=== PATIENT | female | born 1965 | race Caucasian/White ===

== ENCOUNTER 2017-02-07 19:40 | Emergency (ER) | payer OTHER ==
--- NOTE | ~2017-02-07 | CR181 ---
[facility]. [facility] A Service of [facility] & [facility] RADIOLOGY TEXT RESULTS PATIENT: MERCEDEZ LUTHER LOCATION: SED : 69 UNIT #: [id number] AGE: [address]: Maggie Armas MD SEX: F ORDER DR: [id number] [address] [address] [id number] E MR#: [id number] Acc #: [id number] NAME: MERCEDEZ LUTHER : 1965 SEX: F STUDY DATE/TIME: 02/07/2017 20:18 UNIT: SED ROOM: STUDY DESCRIPTION: CR Lumbar Spine 2 or 3 Views Attending Physician: Maggie Armas M.D. Ordering Physician: Maggie Armas M.D. Primary Care Physician: No Primary Care Physician MEDICAL IMAGING REPORT This report is preliminary unless electronic signature is present. EXAM Lumbar spine. INDICATION Low back pain status post fall. Trauma. FINDINGS Three views of the lumbar spine without comparison. There is no acute fracture. No subluxation. There is some mild degenerative changes of the lumbar spine, predominately consisting of facet arthropathy from L3-4 through L5-S1. IMPRESSION No acute findings. Dictated by... Kwame Ewing M.D. THIS IS AN ELECTRONICALLY VERIFIED REPORT Kwame Ewing M.D. at 02/08/2017 3:07 PM TERI/timoteo TD: 02/08/2017 12:03 JOB #: [id number] MEDICAL IMAGING REPORT Page 1 of 1
--- NOTE | ~2017-02-07 | CR151 ---
[facility]. [facility] A Service of [facility] & [facility] RADIOLOGY TEXT RESULTS PATIENT: MERCEDEZ LUTHER LOCATION: SED : 69 UNIT #: [id number] AGE: [address]: Maggie Armas MD SEX: F ORDER DR: [id number] [address] [address] [id number] E MR#: [id number] Acc #: [id number] NAME: MERCEDEZ LUTHER : 1965 SEX: F STUDY DATE/TIME: 02/07/2017 20:18 UNIT: SED ROOM: STUDY DESCRIPTION: CR Hip Min 2 Views Rt Attending Physician: Maggie Armas M.D. Ordering Physician: Maggie Armas M.D. Primary Care Physician: Primary Care Physician No MEDICAL IMAGING REPORT This report is preliminary unless electronic signature is present. EXAM Right hip INDICATION Trauma. Fall. Right hip pain. FINDINGS Two views of the right hip without comparison. There is no acute fracture or dislocation. Joint spaces are well preserved. IMPRESSION No acute findings in the right hip. Dictated by... Kwame Ewing M.D. THIS IS AN ELECTRONICALLY VERIFIED REPORT Kwame Ewing M.D. at 02/08/2017 3:07 PM Salome TD: 02/08/2017 11:54 JOB #: [id number] MEDICAL IMAGING REPORT Page 1 of 1
[2017-02-07] MEDS ORDERED: NO MEDICATIONS (19:57)
== END 2017-02-07 20:51 | disposition home or self-care (01) ==
LOC: SED 19:40
DX: S39.012A Strain of muscle, fascia and tendon of lower back, initial encounter (principal); S70.01XA Contusion of right hip, initial encounter; I10 Essential (primary) hypertension; E03.9 Hypothyroidism, unspecified; J44.9 Chronic obstructive pulmonary disease, unspecified; F17.210 Nicotine dependence, cigarettes, uncomplicated; Z88.0 Allergy status to penicillin; Z88.5 Allergy status to narcotic agent; W01.0XXA Fall on same level from slipping, tripping and stumbling without subsequent striking against object, initial encounter; Y92.009 Unspecified place in unspecified non-institutional (private) residence as the place of occurrence of the external cause
CPT/HCPCS: 72100; 73502; 99283